=== PATIENT | male | born 1970 | race African-American/Black ===

== ENCOUNTER 2017-08-24 14:07 | Inpatient (IN) | payer BC ==
[2017-08-24 17:31] VITALS: BMI 23.9
--- NOTE | 2017-08-24 20:14 | HP ---
CIWA Score - CIWA Score Nausea/Vomitin-No Nausea/No Vomiting Muscle Tremors: 2 Anxiety: 4-Mod. Anxious/Guarded Agitation: 4-Moderately Restless Paroxysmal Sweats: No Perspiration Orientation: 0-Oriented Tacttile Disturbances: 0-None Auditory Disturbances: 0-None Visual Disturbances: 2-Mild Sensitivity Headache: 0-None Present CIWA-Ar Total Score: 12 Admission ROS BHS - HPI Chief Complaint: " My doctor said my liver is bad, I won't make alive until March, my career is crazy, I get anxiety attacks." Allergies/Adverse Reactions: Allergies Allergy/AdvReac Type Severity Reaction Status Date / Time avocado Allergy Severe Verified 08/24/17 17:40 banana Allergy Severe Verified 08/24/17 17:40 nut - unspecified Allergy Severe Verified 08/24/17 17:40 History of Present Illness: 46 yo male with hx of alcohol and nicotine dependence is here seeking detox. PMHX: cirrhosis of liver, GERD, anxiety, depression and insomnia. Denies suicidal / homicidal ideation. Reports last hospitalization in coma for 2 weeks in February 2017 after heavy drinking and vomiting blood. Denies hx of suicide attempts. Denies hx of seizures or blackouts . Last detox 10 years ago, doesn' t recall the facility. Longest period of sobriety 2 weeks. Exam Limitations: No Limitations - Ebola screening Have you traveled outside of the country in the last 21 days: No (N) Have you had contact with anyone from an Ebola affected area: No Have you been sick,other than usual withdrawal symptoms: No Do you have a fever: No - Review of Systems Constitutional: Changes in sleep EENT: reports: No Symptoms Reported Respiratory: reports: SOB with Exertion (after ambulating for 6 blocks) Cardiac: reports: No Symptoms Reported GI: reports: Poor Fluid Intake : reports: No Symptoms Reported Musculoskeletal: reports: Back Pain Integumentary: reports: No Symptoms Reported Neuro: reports: No Symptoms reported Endocrine: reports: No Symptoms Reported Hematology: reports: No Symptoms Reported Psychiatric: reports: Orientated x3, Anxious Other Systems: Reviewed and Negative Patient History - Patient Medical History Hx Anemia: No Hx Asthma: No Hx Chronic Obstructive Pulmonary Disease (COPD): No Hx Cancer: No Hx Cardiac Disorders: No Hx Congestive Heart Failure: No Hx Hypertension: No Hx Hypercholesterolemia: No Hx Pacemaker: No HX Cerebrovascular Accident: No Hx Seizures: No Hx Dementia: No Hx Diabetes: No Hx Gastrointestinal Disorders: Yes (hx GI bleed with blood tranfusion) Hx Liver Disease: Yes (Liver cirrhosis ) Hx Genitourinary Disorders: No Hx Sexually Transmitted Disorders: No Hx Renal Disease (ESRD): No Hx Thyroid Disease: No Hx Human Immunodeficiency Virus (HIV): No Hx Hepatitis C: No Hx Depression: Yes Hx Suicide Attempt: No Hx Bipolar Disorder: No Hx Schizophrenia: No - Patient Surgical History Past Surgical History: Yes Hx Orthopedic Surgery: Yes (bilateral shoulder sx R knee sx, R arm sx) Other Surgical History: Tracheostomy in 02/26. Anesthesia Reaction: No - PPD History Previous Implant?: Yes Documented Results: Negative w/o proof Implanted On Prior [facility] Admission?: No PPD to be Administered?: Yes - Smoking Cessation Smoking history: Current every day smoker Have you smoked in the past 12 months: Yes Aproximately how many cigarettes per day: 20 Hx Chewing Tobacco Use: No Initiated information on smoking cessation: Yes 'Breaking Loose' booklet given: 08/24/17 - Substance & Tx. History Hx Alcohol Use: Yes Hx Substance Use: Yes Substance Use Type: Alcohol Hx Substance Use Treatment: Yes (Last detox 10 years ago, doesn't recall the facility.) - Substances Abused Alcohol Route: Oral Frequency: Daily Amount used: 1 pint vodka Age of first use: 19 Date of Last Use: 08/24/17 Family Disease History - Family Disease History Family Disease History: Other: Mother (alive and well ), Brother (alive and well ) Admission Physical Exam S - Vital Signs Vital Signs: Vital Signs - 24 hr 08/24/17 17:26 Pulse Rate 88 Respiratory 20 Rate Blood Pressure 110/67 - Physical General Appearance: Yes: Appropriately Dressed, Thin, Anxious HEENTM: Yes: EOMI, Hearing grossly Normal, Normal ENT Inspection, Normocephalic , Normal Voice, FARZANEH, Pharynx Normal, Tm's normal Respiratory: Yes: Chest Non-Tender, Lungs Clear, No Respiratory Distress, No Accessory Muscle Use, Wheezing Neck: Yes: No masses,lesions,Nodules, Trachea in good position Breast: Yes: Breast Exam Deferred Cardiology: Yes: Regular Rhythm, Regular Rate Abdominal: Yes: Normal Bowel Sounds, Non Tender, Flat, Soft Genitourinary: Yes: Within Normal Limits Back: Yes: Normal Inspection Musculoskeletal: Yes: full range of Motion, Gait Steady, Pelvis Stable, Back pain Extremities: Yes: Normal Capillary Refill, Normal Inspection, Normal Range of Motion, Non-Tender Neurological: Yes: cv rn II-XII NML intact, Fully Oriented, Alert, Motor Strength 5/5, Depressed Affect Integumentary: Yes: Normal Color, Warm, Moist Lymphatic: Yes: Within Normal Limits - Diagnostic (1) Alcohol dependence with withdrawal Current Visit: Yes Status: Acute Qualifiers: Complication of substance-induced condition: uncomplicated Qualified Code(s ): F10.230 - Alcohol dependence with withdrawal, uncomplicated (2) Wheezing Current Visit: Yes Status: Acute (3) Insomnia Current Visit: Yes Status: Acute Qualifiers: Insomnia type: unspecified Qualified Code(s): G47.00 - Insomnia, unspecified (4) Anxious mood Current Visit: Yes Status: Acute (5) Liver cirrhosis Current Visit: Yes Status: Chronic Qualifiers: Hepatic cirrhosis type: unspecified hepatic cirrhosis Ascites presence: without ascites Qualified Code(s): K74.60 - Unspecified cirrhosis of liver (6) GERD (gastroesophageal reflux disease) Current Visit: Yes Status: Chronic Qualifiers: Esophagitis presence: esophagitis presence not specified Qualified Code(s) : K21.9 - Gastro-esophageal reflux disease without esophagitis (7) Nicotine dependence Current Visit: Yes Status: Acute Qualifiers: Nicotine product type: cigarettes Cleared for Admission [facility] - Detox or Rehab [facility] Level of Care: Medically Managed Detox Regimen/Protocol: Librium [facility] Breath Alcohol Content Breath Alcohol Content: 0.265 Urine Drug Screen - Results Drug Screen Negative: No Urine Drug Screen Results: TCA-Tricyclic Antidepress
[2017-08-24] MEDS ORDERED: LOPERAMIDE HCL 2 MG CAPSULE PO PRN (20:20)
[2017-08-24] MEDS ORDERED: MAGNESIUM CITRATE 300 ML BOTTLE PO PRN (20:20)
[2017-08-24] MEDS ORDERED: MENTHOL/PHENOL 1 EACH UD MM PRN (20:20)
[2017-08-24] MEDS ORDERED: IBUPROFEN 400 MG TABLET (FP) PO PRN (20:20)
[2017-08-24] MEDS ORDERED: chlordiazePOXIDE HCL 25 MG CAPSULE PO PRN (20:20)
[2017-08-24] MEDS ORDERED: NICOTINE POLACRILEX 2 MG GUM BUC PRN (20:20)
[2017-08-24] MEDS ORDERED: ACETAMINOPHEN 325 MG TABLET (FP) PO PRN (20:20)
[2017-08-24] MEDS ORDERED: hydrOXYzine PAMOATE 50 MG CAPSULE (FP) PO PRN (20:30)
[2017-08-24] MEDS ORDERED: guaiFENesin/D-METHORPHAN HB 10 ML UNIT-DOSE CUPS PO PRN (20:30)
[2017-08-24] MEDS ORDERED: chlordiazePOXIDE HCL 25 MG CAPSULE PO ONE (20:30)
[2017-08-24] MEDS ORDERED: MAG HYDROX/AL HYDROX/SIMETH 30 ML UNIT-DOSE CUP PO PRN (20:31)
[2017-08-24] MEDS ORDERED: MAGNESIUM HYDROX 2400MG/30ML ORAL SUSPENSION 30 ML CUP PO PRN (20:31)
[2017-08-24] MEDS ORDERED: P-EPHED 60MG/TRIPROLIDI 2.5MG TABLET PO PRN (20:32)
[2017-08-24] MEDS ORDERED: ALBUTEROL SO4 0.083% IH SOL 2.5 MG/3 ML VIAL.NEB. NEB PRN (21:55)
[2017-08-24] MEDS ORDERED: MELATONIN 5 MG TABLETS PO PRN (22:00)
[2017-08-24] MEDS: GABAPENTIN 300 MG CAPSULE (FP) PO SCH (22:03)
[2017-08-24] MEDS: THIAMINE HCL 100 MG TABLET (FP) PO SCH (22:03)
[2017-08-24] MEDS: chlordiazePOXIDE HCL 25 MG CAPSULE PO SCH (22:03)
[2017-08-25] MEDS: chlordiazePOXIDE HCL 25 MG CAPSULE PO SCH ×4 (04:51→22:32)
[2017-08-25] MEDS: GABAPENTIN 300 MG CAPSULE (FP) PO SCH ×3 (06:25→22:31)
[2017-08-25] MEDS ORDERED: LUTEIN PO SCH (10:00)
[2017-08-25] MEDS ORDERED: COQ10 PO SCH (10:00)
[2017-08-25] MEDS ORDERED: PATIENT'S OWN MEDICATION (NON-FORMULARY) (Thiamine Mononitrate [Vitamin B-1] 100 MG) PO SCH (10:00)
[2017-08-25] MEDS ORDERED: MV MN PO SCH (10:00)
[2017-08-25] MEDS ORDERED: [UNRECOGNIZED DRUG - OTHER] PO SCH (10:00)
[2017-08-25] MEDS ORDERED: LYCOPENE PO SCH (10:00)
[2017-08-25] MEDS ORDERED: PATIENT'S OWN MEDICATION (NON-FORMULARY) (Folic Acid - [Folic Acid -] 1 MG) PO SCH (10:00)
[2017-08-25] MEDS: FUROSEMIDE 40 MG TABLET (FP) PO SCH (10:22)
[2017-08-25] MEDS: PRENATAL VITAMINS W/ FOLIC ACID TABLET (FP) PO SCH (10:22)
[2017-08-25] MEDS: NICOTINE 21 MG/24 HOURS TOPICAL PATCH TD SCH (10:23)
[2017-08-25 10:25] LABS: CHLORIDE 97 mmol/L (98-107); SODIUM 135 mmol/L (136-145)
[2017-08-25] MEDS: SPIRONOLACTONE 25 MG TABLET (FP) PO SCH (10:26)
[2017-08-25 10:38] LABS: ALBUMIN 2.9 g/dl (3.4-5.0); ALK PHOS 130 U/L (45-117); ANION GAP 12 (8-16); BILIRUBIN,TOTAL 2.4 mg/dL (0.2-1.0); BLOOD UREA NITROGEN 6 mg/dL (7-18); CALCIUM 8.1 mg/dL (8.5-10.1); CO2 26 mmol/L (21-32); CREATININE 0.9 mg/dL (0.7-1.3); GLUCOSE,RANDOM 160 mg/dL (74-106); SGOT/AST 135 U/L (15-37); SGPT/ALT 28 U/L (12-78); TOT PROT 7.4 g/dl (6.4-8.2)
[2017-08-25 10:46] LABS: POTASSIUM 2.8 mmol/L (3.5-5.1)
[2017-08-25] MEDS: PATIENT'S OWN MEDICATION (NON-FORMULARY) (Famotidine [Famotidine] 20 MG) PO SCH (10:50)
[2017-08-25] MEDS ORDERED: POTASSIUM CHLORIDE TABS 20 MEQ TABLET.ER (FP) PO ONE (11:00)
[2017-08-25 11:01] LABS: HEMATOCRIT 28.4 % (35.4-49); HEMOGLOBIN 9.8 GM/dL (11.7-16.9); MCH 29.2 pg (25.7-33.7); MCHC 34.4 g/dl (32.0-35.9); MEAN CELL VOLUME 84.8 fl (80-96); MEAN PLT VOLUME 9.9 fl (7.5-11.1); PLATELET COUNT 71 K/MM3 (134-434); RBC 3.35 M/mm3 (4.00-5.60); RDW 17.5 % (11.9-15.9)
--- NOTE | 2017-08-25 12:04 | EKG ---
Test Reason : Blood Pressure : / mmHG Vent. Rate : 071 BPM Atrial Rate : 071 BPM P-R Int : 178 ms QRS Dur : 096 ms QT Int : 400 ms P-R-T Axes : 031 -40 043 degrees QTc Int : 434 ms NORMAL SINUS RHYTHM LEFT AXIS DEVIATION INFERIOR INFARCT , AGE UNDETERMINED ABNORMAL ECG NO PREVIOUS ECGS AVAILABLE Confirmed by JUICE GUEVARA MD ([id number]) on 08/25/2017 12:03:41 PM Referred By: Confirmed By:JUICE GUEVARA MD
--- NOTE | 2017-08-25 13:12 | PN ---
[facility] CIWA - CIWA Score Nausea/Vomitin-No Nausea/No Vomiting Muscle Tremors: 4-Moderate,w/Arms Extend Anxiety: 4-Mod. Anxious/Guarded Agitation: 3 Paroxysmal Sweats: No Perspiration Orientation: 0-Oriented Tacttile Disturbances: 3-Moderate Itch/Numb/Burn Auditory Disturbances: 2-Mild Harshness/Frighten Visual Disturbances: 0-None Headache: 0-None Present CIWA-Ar Total Score: 16 BHS Progress Note (SOAP) Subjective: Tremors, Body Aches, Interrupted Sleep, Anxious. Objective: PATIENT A & O X 3, OBSERVED AMBULATING ON UNIT. NO ACUTE DISTRESS. 08/25/17 13:07 Vital Signs Temperature 98.0 F 08/25/17 09:26 Pulse Rate 89 08/25/17 10:30 Respiratory Rate 20 08/25/17 10:30 Blood Pressure 133/89 08/25/17 09:26 O2 Sat by Pulse Oximetry (%) Laboratory Tests 08/25/17 08/25/17 08/25/17 07:30 07:30 07:30 WBC 6.0 RBC 3.35 L Hgb 9.8 L Hct 28.4 L MCV 84.8 MCH 29.2 MCHC 34.4 RDW 17.5 H Plt Count 71 L MPV 9.9 Manual Slide Review Sodium 135 L Potassium 2.8 L* Chloride 97 L Carbon Dioxide 26 Anion Gap 12 BUN 6 L Creatinine 0.9 Creat Clearance w eGFR > 60 Random Glucose 160 H Calcium 8.1 L Total Bilirubin 2.4 H AST 135 H ALT 28 Alkaline Phosphatase 130 H Total Protein 7.4 Albumin 2.9 L RPR Titer Nonreactive LABS NOTED. UA RESULTS PENDING. 08/25/17 13:12 Assessment: 08/25/17 13:10 WITHDRAWAL SYMPTOMS. Plan: CONTINUE DETOX. PATIENT HAS HISTORY OF LACTULOSE PRESCRIPTION BY OUTSIDE MEDICAL PROVIDER. PATIENT HAS HISTORY OF LIVER CIRRHOSIS. AMMONIA LEVEL ORDERED. WILL START LACTULOSE PENDING RESULT.
--- NOTE | 2017-08-25 14:00 | CONSULT ---
[facility] Psychiatric Consult - Data Date of interview: 08/25/17 Admission source: [facility] Identifying data: First admission to [facility] for this 46 y/o AA male seeking detox treatment on for alcohol dependence.Patient is single (common-law relationship for 12 years),father of one,domiciled,unemployed and supported on SSI benefits. Substance Abuse History: Confirmed by patient in this session.Smoking history: Current every day smoker. Have you smoked in the past 12 months: Yes. Aproximately how many cigarettes per day: 20. Hx Chewing Tobacco Use: No. Initiated information on smoking cessation: Yes. 'Breaking Loose' booklet given : 08/24/17. - Substance & Tx. History. Hx Alcohol Use: Yes. Hx Substance Use : Yes. Substance Use Type: Alcohol. Hx Substance Use Treatment: Yes (Last detox 10 years ago, doesn't recall the facility.). - Substances Abused. Alcohol. Route: Oral. Frequency: Daily. Amount used: 1 pint vodka. Age of first use: 19. Date of Last Use: 08/24/17 Medical History: Esophageal varices (history of GI bleed and blood transfusion), cirrhosis of the liver and antecedent of orthosurgery (both shoulders + right arm + right knee).History of coma and tracheostomy. Psychiatric History: Patient denies. Physical/Sexual Abuse/Trauma History: Patient denies. Additional Comment: Urine Drug Screen Results: TCA-Tricyclic Antidepressant.Noted. Mental Status Exam - Mental Status Exam Alert and Oriented to: Time, Place, Person Cognitive Function: Good Patient Appearance: Well Groomed Mood: Hopeful, Euthymic Affect: Appropriate, Normal Range Patient Behavior: Fatigued, Appropriate, Cooperative Speech Pattern: Clear, Appropriate Voice Loudness: Normal Thought Process: Intact, Goal Oriented Thought Disorder: Not Present Hallucinations: Denies Suicidal Ideation: Denies Homicidal Ideation: Denies Insight/Judgement: Poor Sleep: Poorly, Difficulty falling asleep Appetite: Good Muscle strength/Tone: Normal Gait/Station: Normal Psychiatric Findings - Problem List ([place] 1, 2,3) (1) Alcohol dependence with withdrawal Current Visit: Yes Status: Acute Qualifiers: Complication of substance-induced condition: uncomplicated Qualified Code(s ): F10.230 - Alcohol dependence with withdrawal, uncomplicated (2) Insomnia Current Visit: Yes Status: Acute Qualifiers: Insomnia type: unspecified Qualified Code(s): G47.00 - Insomnia, unspecified (3) Nicotine dependence Current Visit: Yes Status: Acute Qualifiers: Nicotine product type: cigarettes Substance use status: uncomplicated Qualified Code(s): F17.210 - Nicotine dependence, cigarettes, uncomplicated - Initial Treatment Plan Initial Treatment Plan: Psychoeducation.Sleep hygiene.Detoxification in progress.Ambien 5 mg po hs prn.Patient is informed of the risk of parasomnias.Agrees to this careplan.Observation.
[2017-08-25] MEDS: POTASSIUM CHLORIDE TABS 20 MEQ TABLET.ER (FP) PO SCH (17:44)
[2017-08-25 18:21] LABS: URINE APPEARANCE CLEAR; URINE BILIRUBIN NEGATIVE (<2.0 mg/dL); URINE COLOR DKYELLOW; URINE GLUCOSE (UA) NEGATIVE (NEGATIVE); URINE KETONE NEGATIVE (NEGATIVE); URINE LEUK ESTERASE NEGATIVE (NEGATIVE); URINE NITRITE NEGATIVE (NEGATIVE); URINE PROTEIN NEGATIVE (NEGATIVE)
[2017-08-25] MEDS: THIAMINE HCL 100 MG TABLET (FP) PO SCH (22:32)
[2017-08-25] MEDS: CYCLOBENZAPRINE HCL 10 MG TABLET (FP) PO PRN (22:32)
[2017-08-25] MEDS: ZOLPIDEM TARTRATE 5 MG TABLET PO PRN (22:32)
[2017-08-26] MEDS: chlordiazePOXIDE HCL 25 MG CAPSULE PO SCH ×3 (05:39→17:38)
[2017-08-26] MEDS: GABAPENTIN 300 MG CAPSULE (FP) PO SCH ×3 (05:39→22:42)
[2017-08-26] MEDS: PRENATAL VITAMINS W/ FOLIC ACID TABLET (FP) PO SCH (10:10)
[2017-08-26] MEDS: NICOTINE 21 MG/24 HOURS TOPICAL PATCH TD SCH (10:10)
[2017-08-26] MEDS: PATIENT'S OWN MEDICATION (NON-FORMULARY) (Famotidine [Famotidine] 20 MG) PO SCH (10:10)
[2017-08-26] MEDS: POTASSIUM CHLORIDE TABS 20 MEQ TABLET.ER (FP) PO SCH ×2 (10:10→17:38)
[2017-08-26] MEDS: FUROSEMIDE 40 MG TABLET (FP) PO SCH (10:10)
--- NOTE | 2017-08-26 15:09 | PN ---
[facility] CIWA - CIWA Score Nausea/Vomitin-No Nausea/No Vomiting Muscle Tremors: 3 Anxiety: 4-Mod. Anxious/Guarded Agitation: 3 Paroxysmal Sweats: 2 Orientation: 0-Oriented Tacttile Disturbances: 1-Very Mild Itch/Numbness Auditory Disturbances: 0-None Visual Disturbances: 2-Mild Sensitivity Headache: 0-None Present CIWA-Ar Total Score: 15 BHS Progress Note (SOAP) Subjective: Tremors, Sweating, Anxious, Interrupted Sleep. Objective: PATIENT A & O X 3, OBSERVED AMBULATING ON UNIT. NO ACUTE DISTRESS. 08/26/17 15:05 Vital Signs Temperature 97.6 F 08/26/17 14:17 Pulse Rate 113 H 08/26/17 14:17 Respiratory Rate 20 08/26/17 14:17 Blood Pressure 112/81 08/26/17 14:17 O2 Sat by Pulse Oximetry (%) Laboratory Tests 08/24/17 08/25/17 08/25/17 17:45 07:30 07:30 WBC 6.0 RBC 3.35 L Hgb 9.8 L Hct 28.4 L MCV 84.8 MCH 29.2 MCHC 34.4 RDW 17.5 H Plt Count 71 L MPV 9.9 Manual Slide Review Sodium 135 L Potassium 2.8 L* Chloride 97 L Carbon Dioxide 26 Anion Gap 12 BUN 6 L Creatinine 0.9 Creat Clearance w eGFR > 60 POC Glucometer Random Glucose 160 H Calcium 8.1 L Total Bilirubin 2.4 H AST 135 H ALT 28 Alkaline Phosphatase 130 H Ammonia Total Protein 7.4 Albumin 2.9 L Urine Color Dkyellow Urine Appearance Clear Urine pH 6.0 Ur Specific [place] 1.011 Urine Protein Negative Urine Glucose (UA) Negative Urine Ketones Negative Urine Blood Negative Urine Nitrite Negative Urine Bilirubin Negative Urine Urobilinogen 2.0 Ur Leukocyte Esterase Negative RPR Titer 08/25/17 08/25/17 08/26/17 07:30 16:34 05:38 WBC RBC Hgb Hct MCV MCH MCHC RDW Plt Count MPV Manual Slide Review Sodium Potassium Chloride Carbon Dioxide Anion Gap BUN Creatinine Creat Clearance w eGFR POC Glucometer 133 112 Random Glucose Calcium Total Bilirubin AST ALT Alkaline Phosphatase Ammonia Total Protein Albumin Urine Color Urine Appearance Urine pH Ur Specific [place] Urine Protein Urine Glucose (UA) Urine Ketones Urine Blood Urine Nitrite Urine Bilirubin Urine Urobilinogen Ur Leukocyte Esterase RPR Titer Nonreactive 08/26/17 07:00 WBC RBC Hgb Hct MCV MCH MCHC RDW Plt Count MPV Manual Slide Review Sodium Potassium Chloride Carbon Dioxide Anion Gap BUN Creatinine Creat Clearance w eGFR POC Glucometer Random Glucose Calcium Total Bilirubin AST ALT Alkaline Phosphatase Ammonia 119.55 H Total Protein Albumin Urine Color Urine Appearance Urine pH Ur Specific [place] Urine Protein Urine Glucose (UA) Urine Ketones Urine Blood Urine Nitrite Urine Bilirubin Urine Urobilinogen Ur Leukocyte Esterase RPR Titer LABS NOTED. RESULT OF AMMONIA LEVEL ORDERED. 08/26/17 15:08 Assessment: 08/26/17 15:07 WITHDRAWAL SYMPTOMS. HYPOKALEMIA. HYPERAMMONEMIA. Plan: CONTINUE DETOX. INCREASE DAILY PO FLUID INTAKE. CONTINUE K-DUR, RE-CHECK K LEVEL TOMORROW AM. LACTULOSE, 20 GM PO QID. RE-CHECK AMMONIA LEVEL ON 08/28/2017.
[2017-08-26] MEDS: LACTULOSE 20 GM/30 ML UDC (FOR ORAL USE ONLY) PO SCH ×2 (18:54→22:42)
[2017-08-26] MEDS: THIAMINE HCL 100 MG TABLET (FP) PO SCH (22:42)
[2017-08-26] MEDS: ZOLPIDEM TARTRATE 5 MG TABLET PO PRN (22:42)
[2017-08-26] MEDS: chlordiazePOXIDE 5 MG CAPSULE PO SCH (22:42)
[2017-08-27] MEDS: GABAPENTIN 300 MG CAPSULE (FP) PO SCH ×3 (05:40→22:36)
[2017-08-27] MEDS: chlordiazePOXIDE 5 MG CAPSULE PO SCH ×3 (05:40→17:49)
[2017-08-27 09:54] LABS: ALBUMIN 2.7 g/dl (3.4-5.0); BILIRUBIN,DIRECT 1.4 mg/dL (0.0-0.2); BILIRUBIN,TOTAL 2.1 mg/dL (0.2-1.0); POTASSIUM 3.8 mmol/L (3.5-5.1); TOT PROT 6.8 g/dl (6.4-8.2)
[2017-08-27] MEDS: CYCLOBENZAPRINE HCL 10 MG TABLET (FP) PO PRN (10:27)
[2017-08-27] MEDS: POTASSIUM CHLORIDE TABS 20 MEQ TABLET.ER (FP) PO SCH ×2 (10:27→17:48)
[2017-08-27] MEDS: FUROSEMIDE 40 MG TABLET (FP) PO SCH (10:27)
[2017-08-27] MEDS: PRENATAL VITAMINS W/ FOLIC ACID TABLET (FP) PO SCH (10:27)
[2017-08-27] MEDS: PATIENT'S OWN MEDICATION (NON-FORMULARY) (Famotidine [Famotidine] 20 MG) PO SCH (10:28)
[2017-08-27] MEDS: NICOTINE 21 MG/24 HOURS TOPICAL PATCH TD SCH (10:28)
[2017-08-27] MEDS: LACTULOSE 20 GM/30 ML UDC (FOR ORAL USE ONLY) PO SCH ×4 (11:24→22:37)
[2017-08-27] MEDS: SPIRONOLACTONE 25 MG TABLET (FP) PO SCH (11:24)
--- NOTE | 2017-08-27 15:13 | PN ---
BHS Progress Note (SOAP) Subjective: Tremors, Anxious, Interrupted Sleep. Objective: PATIENT A & O X 3, OBSERVED AMBULATING ON UNIT. NO ACUTE DISTRESS. 08/27/17 15:09 Vital Signs Temperature 96.4 F L 08/27/17 14:49 Pulse Rate 106 H 08/27/17 14:49 Respiratory Rate 18 08/27/17 14:49 Blood Pressure 118/84 08/27/17 14:49 O2 Sat by Pulse Oximetry (%) Laboratory Tests 08/24/17 08/25/17 08/25/17 17:45 07:30 07:30 WBC 6.0 RBC 3.35 L Hgb 9.8 L Hct 28.4 L MCV 84.8 MCH 29.2 MCHC 34.4 RDW 17.5 H Plt Count 71 L MPV 9.9 Manual Slide Review Sodium 135 L Potassium 2.8 L* Chloride 97 L Carbon Dioxide 26 Anion Gap 12 BUN 6 L Creatinine 0.9 Creat Clearance w eGFR > 60 POC Glucometer Random Glucose 160 H Calcium 8.1 L Total Bilirubin 2.4 H Direct Bilirubin AST 135 H ALT 28 Alkaline Phosphatase 130 H Ammonia Total Protein 7.4 Albumin 2.9 L Urine Color Dkyellow Urine Appearance Clear Urine pH 6.0 Ur Specific [place] 1.011 Urine Protein Negative Urine Glucose (UA) Negative Urine Ketones Negative Urine Blood Negative Urine Nitrite Negative Urine Bilirubin Negative Urine Urobilinogen 2.0 Ur Leukocyte Esterase Negative RPR Titer 08/25/17 08/25/17 08/26/17 07:30 16:34 05:38 WBC RBC Hgb Hct MCV MCH MCHC RDW Plt Count MPV Manual Slide Review Sodium Potassium Chloride Carbon Dioxide Anion Gap BUN Creatinine Creat Clearance w eGFR POC Glucometer 133 112 Random Glucose Calcium Total Bilirubin Direct Bilirubin AST ALT Alkaline Phosphatase Ammonia Total Protein Albumin Urine Color Urine Appearance Urine pH Ur Specific [place] Urine Protein Urine Glucose (UA) Urine Ketones Urine Blood Urine Nitrite Urine Bilirubin Urine Urobilinogen Ur Leukocyte Esterase RPR Titer Nonreactive 08/26/17 08/27/17 08/27/17 07:00 05:43 07:00 WBC RBC Hgb Hct MCV MCH MCHC RDW Plt Count MPV Manual Slide Review Sodium Potassium 3.8 D Chloride Carbon Dioxide Anion Gap BUN Creatinine Creat Clearance w eGFR POC Glucometer 113 Random Glucose Calcium Total Bilirubin 2.1 H Direct Bilirubin 1.4 H AST 104 H D ALT 25 Alkaline Phosphatase 125 H Ammonia 119.55 H Total Protein 6.8 Albumin 2.7 L Urine Color Urine Appearance Urine pH Ur Specific [place] Urine Protein Urine Glucose (UA) Urine Ketones Urine Blood Urine Nitrite Urine Bilirubin Urine Urobilinogen Ur Leukocyte Esterase RPR Titer LABS NOTED. RESULTS PF REPEAT K LEVELS AND BMP NOTED. 08/27/17 15:11 Assessment: 08/27/17 15:09 WITHDRAWAL SYMPTOMS. ANEMIA. THROMBOCYTOPENIA. HYPERAMMONEMIA. 08/27/17 15:10 Plan: CONTINUE DETOX. INCREASE DAILY PO FLUID INTAKE. CONTINUE LACTULOSE. REPEAT AMMONIA LEVEL TOMORROW AM. PATIENT ADVISED TO FOLLOW-UP WITH MEDICAL PROVIDER DR. GARCIA ([facility], [place], [place] AFTER DISCAHRGE FROM DETOX FOR GENERAL MEDICAL ASSESSMENT AND FOR ABNORMAL LEVIVER ENZYME AND ELEVATED AMMONIA LEVELS WHILE ADMITTED FOR DETOX.
[2017-08-27] MEDS: chlordiazePOXIDE HCL 10 MG CAPSULE PO SCH (22:36)
[2017-08-27] MEDS: THIAMINE HCL 100 MG TABLET (FP) PO SCH (22:36)
[2017-08-27] MEDS: ZOLPIDEM TARTRATE 5 MG TABLET PO PRN (22:36)
[2017-08-28] MEDS: chlordiazePOXIDE HCL 10 MG CAPSULE PO SCH (05:10)
[2017-08-28] MEDS: GABAPENTIN 300 MG CAPSULE (FP) PO SCH (05:10)
[2017-08-28 06:23] VITALS: BP 114/76; PULSE 110; TEMP 96.4
--- NOTE | 2017-08-28 20:08 | PN ---
BHS Progress Note (SOAP) Subjective: Patient denies current Detox symptoms and reports that he feels well overall. Objective: PATIENT A & O X 3, OBSERVED AMBULATING ON UNIT. NO ACUTE DISTRESS. 08/28/17 20:06 Vital Signs Temperature 96.4 F L 08/28/17 06:22 Pulse Rate 110 H 08/28/17 06:22 Respiratory Rate 18 08/28/17 06:22 Blood Pressure 114/76 08/28/17 06:22 O2 Sat by Pulse Oximetry (%) Laboratory Tests 08/24/17 08/25/17 08/25/17 17:45 07:30 07:30 WBC 6.0 RBC 3.35 L Hgb 9.8 L Hct 28.4 L MCV 84.8 MCH 29.2 MCHC 34.4 RDW 17.5 H Plt Count 71 L MPV 9.9 Manual Slide Review Sodium 135 L Potassium 2.8 L* Chloride 97 L Carbon Dioxide 26 Anion Gap 12 BUN 6 L Creatinine 0.9 Creat Clearance w eGFR > 60 POC Glucometer Random Glucose 160 H Calcium 8.1 L Total Bilirubin 2.4 H Direct Bilirubin AST 135 H ALT 28 Alkaline Phosphatase 130 H Ammonia Total Protein 7.4 Albumin 2.9 L Urine Color Dkyellow Urine Appearance Clear Urine pH 6.0 Ur Specific [place] 1.011 Urine Protein Negative Urine Glucose (UA) Negative Urine Ketones Negative Urine Blood Negative Urine Nitrite Negative Urine Bilirubin Negative Urine Urobilinogen 2.0 Ur Leukocyte Esterase Negative RPR Titer 08/25/17 08/25/17 08/26/17 07:30 16:34 05:38 WBC RBC Hgb Hct MCV MCH MCHC RDW Plt Count MPV Manual Slide Review Sodium Potassium Chloride Carbon Dioxide Anion Gap BUN Creatinine Creat Clearance w eGFR POC Glucometer 133 112 Random Glucose Calcium Total Bilirubin Direct Bilirubin AST ALT Alkaline Phosphatase Ammonia Total Protein Albumin Urine Color Urine Appearance Urine pH Ur Specific [place] Urine Protein Urine Glucose (UA) Urine Ketones Urine Blood Urine Nitrite Urine Bilirubin Urine Urobilinogen Ur Leukocyte Esterase RPR Titer Nonreactive 08/26/17 08/27/17 08/27/17 07:00 05:43 07:00 WBC RBC Hgb Hct MCV MCH MCHC RDW Plt Count MPV Manual Slide Review Sodium Potassium 3.8 D Chloride Carbon Dioxide Anion Gap BUN Creatinine Creat Clearance w eGFR POC Glucometer 113 Random Glucose Calcium Total Bilirubin 2.1 H Direct Bilirubin 1.4 H AST 104 H D ALT 25 Alkaline Phosphatase 125 H Ammonia 119.55 H Total Protein 6.8 Albumin 2.7 L Urine Color Urine Appearance Urine pH Ur Specific [place] Urine Protein Urine Glucose (UA) Urine Ketones Urine Blood Urine Nitrite Urine Bilirubin Urine Urobilinogen Ur Leukocyte Esterase RPR Titer 08/28/17 08/28/17 05:12 07:50 WBC RBC Hgb Hct MCV MCH MCHC RDW Plt Count MPV Manual Slide Review Sodium Potassium Chloride Carbon Dioxide Anion Gap BUN Creatinine Creat Clearance w eGFR POC Glucometer 127 Random Glucose Calcium Total Bilirubin Direct Bilirubin AST ALT Alkaline Phosphatase Ammonia 102.75 H Total Protein Albumin Urine Color Urine Appearance Urine pH Ur Specific [place] Urine Protein Urine Glucose (UA) Urine Ketones Urine Blood Urine Nitrite Urine Bilirubin Urine Urobilinogen Ur Leukocyte Esterase RPR Titer labs noted. Assessment: 08/28/17 20:07 COMPLETION OF DETOX REGIMEN. Plan: PATIENT SCHEDULED FOR DISCHARGE FROM DETOX UNIT TODAY.
--- NOTE | 2017-08-28 20:13 | DS ---
[facility] Detox Discharge Summary Admission Date: 08/24/17 Discharge Date: 08/28/17 - History Present History: Alcohol Dependence Additional Comments: PATIENT GOING HOME FOR TIME BEING AND WILL CONSIDER OPTIONS FOR AFTERCARE. PATIENT ADVISED TO CONSIDER LOCAL 12-STEP / AA OUTPATIENT SUPPORT GROUPS FOR AFTERCARE. PATIENT ALSO ADVISED TO STREET PHOTOGRAPHER PRESCRIPTION FOR LACTULOSE CURRENTLY WAITING AT HIS PHARMACY ([facility], [facility]) AND TO FOLLOW-UP WITH MEDICAL PROVIDER DR. GARCIA AFTER DISCHARGE FROM DETOX FOR HISTORY OF CIRRHOSIS OF LIVER AND FOR ELEVATED AMMONIA LEVEL WHILE ADMITTED FOR DETOX. COPIES OF ALL LABS DRAWN WHILE ADMITTED FOR DETOX (INCLUDING AMMONIA LEVEL) GIVEN TO PATIENT AT TIME OF DISCHARGE FROM DETOX. PATIENT WAS DISCHARGED FROM DETOX UNIT IN STABLE MEDICAL CONDITION. Pertinent Past History: History of Liver Cirrhosis, History of GI Bleed with subsequent blood transfusion, GERD, Hyperammonemia, Wheezing, Nicotine Dependence, Depression, Insomnia. - Physical Exam Results Vital Signs: Vital Signs Temperature 96.4 F L 08/28/17 06:22 Pulse Rate 110 H 08/28/17 06:22 Respiratory Rate 18 08/28/17 06:22 Blood Pressure 114/76 08/28/17 06:22 O2 Sat by Pulse Oximetry (%) Pertinent Admission Physical Exam Findings: WITHDRAWAL SYMPTOMS. Laboratory Tests 08/24/17 08/25/17 08/25/17 17:45 07:30 07:30 WBC 6.0 RBC 3.35 L Hgb 9.8 L Hct 28.4 L MCV 84.8 MCH 29.2 MCHC 34.4 RDW 17.5 H Plt Count 71 L MPV 9.9 Manual Slide Review Sodium 135 L Potassium 2.8 L* Chloride 97 L Carbon Dioxide 26 Anion Gap 12 BUN 6 L Creatinine 0.9 Creat Clearance w eGFR > 60 POC Glucometer Random Glucose 160 H Calcium 8.1 L Total Bilirubin 2.4 H Direct Bilirubin AST 135 H ALT 28 Alkaline Phosphatase 130 H Ammonia Total Protein 7.4 Albumin 2.9 L Urine Color Dkyellow Urine Appearance Clear Urine pH 6.0 Ur Specific [place] 1.011 Urine Protein Negative Urine Glucose (UA) Negative Urine Ketones Negative Urine Blood Negative Urine Nitrite Negative Urine Bilirubin Negative Urine Urobilinogen 2.0 Ur Leukocyte Esterase Negative RPR Titer 08/25/17 08/25/17 08/26/17 07:30 16:34 05:38 WBC RBC Hgb Hct MCV MCH MCHC RDW Plt Count MPV Manual Slide Review Sodium Potassium Chloride Carbon Dioxide Anion Gap BUN Creatinine Creat Clearance w eGFR POC Glucometer 133 112 Random Glucose Calcium Total Bilirubin Direct Bilirubin AST ALT Alkaline Phosphatase Ammonia Total Protein Albumin Urine Color Urine Appearance Urine pH Ur Specific [place] Urine Protein Urine Glucose (UA) Urine Ketones Urine Blood Urine Nitrite Urine Bilirubin Urine Urobilinogen Ur Leukocyte Esterase RPR Titer Nonreactive 08/26/17 08/27/17 08/27/17 07:00 05:43 07:00 WBC RBC Hgb Hct MCV MCH MCHC RDW Plt Count MPV Manual Slide Review Sodium Potassium 3.8 D Chloride Carbon Dioxide Anion Gap BUN Creatinine Creat Clearance w eGFR POC Glucometer 113 Random Glucose Calcium Total Bilirubin 2.1 H Direct Bilirubin 1.4 H AST 104 H D ALT 25 Alkaline Phosphatase 125 H Ammonia 119.55 H Total Protein 6.8 Albumin 2.7 L Urine Color Urine Appearance Urine pH Ur Specific [place] Urine Protein Urine Glucose (UA) Urine Ketones Urine Blood Urine Nitrite Urine Bilirubin Urine Urobilinogen Ur Leukocyte Esterase RPR Titer 08/28/17 08/28/17 05:12 07:50 WBC RBC Hgb Hct MCV MCH MCHC RDW Plt Count MPV Manual Slide Review Sodium Potassium Chloride Carbon Dioxide Anion Gap BUN Creatinine Creat Clearance w eGFR POC Glucometer 127 Random Glucose Calcium Total Bilirubin Direct Bilirubin AST ALT Alkaline Phosphatase Ammonia 102.75 H Total Protein Albumin Urine Color Urine Appearance Urine pH Ur Specific [place] Urine Protein Urine Glucose (UA) Urine Ketones Urine Blood Urine Nitrite Urine Bilirubin Urine Urobilinogen Ur Leukocyte Esterase RPR Titer LABS NOTED. - Treatment Hospital Course: Detox Protocol Followed, Detoxed Safely, Responded well, Discharged Condition Good Patient has Accepted a Rehab Referral to: PT. GOING HOME,WILL CONSIDER AFTERCARE OPTIONS AND DECIDING WHICH TO CHOOSE - Medication Discharge Medications: Ambulatory Orders Famotidine 20 mg PO DAILY 08/24/17 Folic Acid - 1 mg PO DAILY 08/24/17 Furosemide [Lasix -] 40 mg PO DAILY 08/24/17 Gabapentin [Neurontin] 600 mg PO TID 08/24/17 Lactulose (Oral Use) [Cephulac -] 20 gm PO TID 08/24/17 Mv-Mn/FA/Coq10/Lycopene/Lutein [Theragran-M Premier 50+ Caplet] 1 each PO DAILY 08/24/17 Spironolactone [Aldactone] 100 mg PO DAILY 08/24/17 Thiamine Mononitrate [Vitamin B-1] 100 mg PO DAILY 08/24/17 - Diagnosis (1) Alcohol dependence with withdrawal Status: Acute Qualifiers: Complication of substance-induced condition: uncomplicated Qualified Code(s ): F10.230 - Alcohol dependence with withdrawal, uncomplicated (2) Anxious mood Status: Acute (3) Insomnia Status: Acute Qualifiers: Insomnia type: unspecified Qualified Code(s): G47.00 - Insomnia, unspecified (4) Nicotine dependence Status: Acute Qualifiers: Nicotine product type: cigarettes Substance use status: uncomplicated Qualified Code(s): F17.210 - Nicotine dependence, cigarettes, uncomplicated (5) Wheezing Status: Acute (6) GERD (gastroesophageal reflux disease) Status: Chronic Qualifiers: Esophagitis presence: esophagitis presence not specified Qualified Code(s) : K21.9 - Gastro-esophageal reflux disease without esophagitis (7) Liver cirrhosis Status: Chronic Qualifiers: Hepatic cirrhosis type: unspecified hepatic cirrhosis Ascites presence: without ascites Qualified Code(s): K74.60 - Unspecified cirrhosis of liver (8) Hyperammonemia Status: Acute - AMA Did Patient Leave Against Medical Advice: No
== END 2017-08-28 08:45 | disposition home or self-care (01) | DRG 775 ==
LOC: YASAS 14:07 → Y3N 20:02
PROVIDERS: ADMIT Internal Medicine; ATTEND Internal Medicine
PROC: HZ2ZZZZ Detoxification Services for Substance Abuse Treatment (ICD-10-PCS; principal; 2017-08-24)
DX: F10.230 Alcohol dependence with withdrawal, uncomplicated (principal); F17.210 Nicotine dependence, cigarettes, uncomplicated; F41.9 Anxiety disorder, unspecified; G47.00 Insomnia, unspecified; K21.9 Gastro-esophageal reflux disease without esophagitis; K74.60 Unspecified cirrhosis of liver; E72.20 Disorder of urea cycle metabolism, unspecified; R06.2 Wheezing; Z87.19 Personal history of other diseases of the digestive system
CPT/HCPCS: 36415; 80053; 80076; 81003; 82140; 82962; 84132; 85027; 86593; 93005; 93010